=== PATIENT | female | born 1985 | race Caucasian/White ===

== ENCOUNTER 2019-07-28 09:45 | Emergency (ER) | payer OTHER ==
[2019-07-28] MEDS ORDERED: Ondansetron PF 4 MG/2 ML Vial ONE ×2 (09:54→10:28)
[2019-07-28 10:23] LABS: #Basophils 0.1 thou/uL (0.0-0.2); #Eosinphils 0.1 thou/uL (0.0-0.7); #Lymphocytes 1.2 thou/uL (1.20-3.40); #Monocytes 0.3 thou/uL (0.11-0.59); #Neutrophils 4.3 thou/uL (1.40-6.50); %Basophils 1.1 % (0.0-1.0); %Eosinophils 1.7 % (0.0-10.0); %Lymphocytes 20.3 % (21.0-51.0); %Monocytes 4.8 % (0.0-10.0); %Neutrophils 72.2 % (42.0-75.0); Hemoglobin 12.5 g/dL (12.0-16.0); Mean Corpuscular HGB CONC 33.8 g/dL (32.0-36.0); Mean Corpuscular Hemoglobin 26.9 pg (27.0-31.0); Mean Corpuscular Volume 79.4 fL (78.0-98.0); Mean Platelet Volume 8.5 fL (7.4-10.4); Platelet Count 228 thou/uL (130-400); RBC Distribution Width 14.5 % (11.5-14.5); Red Blood Cell (RBC) Count 4.67 mill/uL (4.20-5.40)
[2019-07-28] MEDS ORDERED: Morphine 4 MG/ML VIAL ONE (10:28)
[2019-07-28 10:35] LABS: BHCG - Serum Negative (NEGATIVE); Pregs Control Background? CLEAR/WHITE (CLR/WHITE); Pregs Control Bar Appear? YES (CONTROL BAR)
[2019-07-28 10:45] LABS: ALT (SGPT) 14 U/L (8-55); AST (SGOT) 18 U/L (5-34); Albumin 4.4 g/dL (3.5-5.0); Alkaline Phosphatase 62 U/L (40-110); Anion Gap 17 mmol/L (10-20); BUN (Urea Nitrogen) 7 mg/dL (7.0-18.7); Bilirubin, Total 0.6 mg/dL (0.2-1.2); Calc. Creatinine Clearance 0 mL/min (70-130); Calcium 9.7 mg/dL (7.8-10.44); Carbon Dioxide 19 mmol/L (22-29); Chloride 109 mmol/L (98-107); Estimated GFR-MDRD 74; Glucose 134 mg/dL (70-105); Lipase 27 U/L (8-78); Potassium 3.5 mmol/L (3.5-5.1); Protein, Total 7.4 g/dL (6.0-8.3); Sodium 141 mmol/L (136-145)
--- NOTE | 2019-07-28 11:11 | CT ---
CT ABDOMEN AND PELVIS: 07/28/2019 HISTORY: Right sided flank pain with vomiting. COMPARISON: None. TECHNIQUE: Axial CT imaging obtained at 5 mm intervals from the lung bases through the pubic symphysis without c ontrast. Coronal and sagittal reformatted imaging obtained. FINDINGS: Lack of contrast limits assessment of the viscera, bowel and vascular structures and for lymphadenopa thy. The imaged lung bases are grossly unremarkable. No free intraperitoneal air or fluid. There is a small sliding type hiatal hernia. The liver, spleen, gallbladder, pancreas and adrenal glands appear grossly unremarkable. No nephrolithiasis is evident on either side. There is mild hydronephrosis and hydroureter on the right, consistent with obstructive uropathy. This is secondary to a distal obstructing stone within the right ureter, just proximal to the right urete rovesical junction, best seen on coronal image 87, measuring approximately 2 mm. No evidence for obstructive uropathy is appreciated on the left. Limited assessment of the bowel appears grossly unremarkable. Review of the osseous structures demonstrates no acute findings. IMPRESSION: A 2 mm distal right ureteral obstructing stone with associated mild right sided hydronephrosis and hy droureter. POS: [facility]
[2019-07-28] MEDS ORDERED: Ketorolac Tromethamine 30 MG/ML VIAL ONE (11:38)
[2019-07-28 12:26] LABS: Bilirubin Negative (Negative); Blood, Urine Negative (Negative); Clarity Turbid (Clear); Glucose, Urine (Dipstick) Normal (Negative); Leukocyte Negative Leu/uL (Negative); Nitrite Negative (Negative); Protein, Urine (Dipstick) 30 mg/dL (Neg-Trace); RBC/HPF Greater than 50 HPF (0-3); Squamous Epithelial 21-50 HPF (0-3); Urobilinogen Normal mg/dL (Less than 2); WBC/HPF 0-3 HPF (0-3)
[2019-07-28 12:27] LABS: Bacteria/HPF 1+ HPF (None Seen)
[2019-07-28] MEDS ORDERED: Fentanyl 100 MCG/2 ML VIAL ONE (13:03)
== END 2019-07-28 14:10 | disposition home or self-care (01) ==
LOC: ERS 09:45
DX: N13.2 Hydronephrosis with renal and ureteral calculous obstruction (principal); F41.9 Anxiety disorder, unspecified
CPT/HCPCS: 36415; 74176; 80053; 81003; 81015; 83690; 84703; 85025; 87086; 93005; J1885; J2270; J2405; J3010

== ENCOUNTER 2019-07-28 21:22 | Emergency (ER) | payer OTHER ==
[2019-07-28] MEDS ORDERED: Ketorolac Tromethamine 30 MG/ML VIAL ONE (21:37)
[2019-07-28] MEDS ORDERED: Ondansetron PF 4 MG/2 ML Vial ONE (21:37)
[2019-07-28 21:57] LABS: #Lymphocytes 0.7 thou/uL (1.20-3.40); #Monocytes 0.4 thou/uL (0.11-0.59); #Neutrophils 8.4 thou/uL (1.40-6.50); %Basophils 0.5 % (0.0-1.0); %Eosinophils 0.2 % (0.0-10.0); %Lymphocytes 7.6 % (21.0-51.0); %Monocytes 4.3 % (0.0-10.0); %Neutrophils 87.5 % (42.0-75.0); Hemoglobin 12.3 g/dL (12.0-16.0); Mean Corpuscular HGB CONC 35.4 g/dL (32.0-36.0); Mean Corpuscular Hemoglobin 28.2 pg (27.0-31.0); Mean Corpuscular Volume 79.5 fL (78.0-98.0); Mean Platelet Volume 8.4 fL (7.4-10.4); Platelet Count 247 thou/uL (130-400); RBC Distribution Width 14.6 % (11.5-14.5); Red Blood Cell (RBC) Count 4.35 mill/uL (4.20-5.40); White Blood Cell (WBC) Count 9.5 thou/uL (4.8-10.8)
[2019-07-28 22:18] LABS: ALT (SGPT) 12 U/L (8-55); AST (SGOT) 17 U/L (5-34); Albumin 4.5 g/dL (3.5-5.0); Alkaline Phosphatase 63 U/L (40-110); Anion Gap 11 mmol/L (10-20); BUN (Urea Nitrogen) 7 mg/dL (7.0-18.7); Bilirubin, Total 0.6 mg/dL (0.2-1.2); Calc. Creatinine Clearance 0 mL/min (70-130); Calcium 9.8 mg/dL (7.8-10.44); Carbon Dioxide 25 mmol/L (22-29); Chloride 108 mmol/L (98-107); Estimated GFR-MDRD 60; Globulin 2.9 g/dL (2.4-3.5); Glucose 97 mg/dL (70-105); Protein, Total 7.4 g/dL (6.0-8.3); Sodium 140 mmol/L (136-145)
== END 2019-07-28 23:44 | disposition home or self-care (01) ==
LOC: ERS 21:22
DX: N20.0 Calculus of kidney (principal); F41.9 Anxiety disorder, unspecified
CPT/HCPCS: 36415; 74176; 80053; 81003; 81015; 83690; 84703; 85025; 87086; 93005; 96361; 96374; 96375; J1885; J2270; J2405; J3010

== ENCOUNTER 2019-09-05 12:28 | Outpatient (CLI) | payer OTHER ==
--- NOTE | 2019-09-05 13:50 | ULT ---
BILATERAL RENAL ULTRASOUND: HISTORY: Right renal stone. FINDINGS: The right kidney measures 9.6 cm in length and the left kidney measures 9.8 cm in length. No focal m ass or hydronephrosis seen on either side. Cortical echogenicity and thickness is normal. No shadow ing calculi identified. Bilateral ureteral jets are seen. The urinary bladder has a volume of 47.6 cc with a postvoid residual of 18 cc. The urinary bladder is grossly unremarkable. IMPRESSION: Normal renal ultrasound. POS: [facility]
== END 2019-09-05 12:29 | disposition home or self-care (01) ==
LOC: BICULT 12:28
PROVIDERS: ATTEND Obstetrics & Gynecology
DX: N20.0 Calculus of kidney (principal)
CPT/HCPCS: 76770

== ENCOUNTER 2022-05-17 17:30 | Outpatient (CLI) | payer MEDICARE, MEDICAID | END 2022-05-17 17:31 | disposition home or self-care (01) | LOC: SLEEPLAB 17:30 | PROVIDERS: ATTEND Internal Medicine Hospice and Palliative Medicine | DX: G47.33 Obstructive sleep apnea (adult) (pediatric) (principal); G47.9 Sleep disorder, unspecified; R53.83 Other fatigue; R51.9 Headache, unspecified; E66.9 Obesity, unspecified; K21.9 Gastro-esophageal reflux disease without esophagitis; R06.83 Snoring; F41.9 Anxiety disorder, unspecified; G47.00 Insomnia, unspecified | CPT/HCPCS: 95800 ==